=== PATIENT | female | born 1995 | race African-American/Black ===

== ENCOUNTER 2017-08-03 18:51 | Emergency (ER) | payer BC, OTHER ==
[2017-08-03] MEDS: ACETAMINOPHEN 500 MG TABLET PO ×2 (19:16)
[2017-08-03] MEDS: ONDANSETRON ODT 4 MG TAB.RAPDIS. PO ×2 (19:16)
[2017-08-03] MEDS: IBUPROFEN 800 MG TABLET. PO ×2 (19:16)
[2017-08-03 19:33] LABS: INFLUENZA A PATIENT NEGATIVE (NEGATIVE)
[2017-08-03 19:34] LABS: INFLUENZA B PATIENT POSITIVE (NEGATIVE); OBC FLU VALID
== END 2017-08-03 20:05 | disposition home or self-care (01) ==
LOC: ER 18:51
DX: J10.1 Influenza due to other identified influenza virus with other respiratory manifestations (principal); J45.909 Unspecified asthma, uncomplicated; Z91.010 Allergy to peanuts
CPT/HCPCS: 87804; 87804-59; 99284; Q0162